=== PATIENT | female | born 1930 | race African-American/Black ===

== ENCOUNTER 2018-03-13 22:25 | Inpatient (IN) | payer OTHER ==
[~2018-03-13] VITALS: Ht 157.5 cm; Wt 64.4 kg
[~2018-03-13 22:25] MED LIST: COLACE100 MG PO; PERCOCET 5/31 TABLET PO
[2018-03-13 23:17] LABS: HEMATOCRIT 32.3 % (36.0-46.0); HEMOGLOBIN 10.7 G/DL (11.9-15.5); MCH 28.4 PG (29.0-34.0); MCHC 33.1 G/DL (30.0-36.0); MCV 85.7 FL (83-99); PLATELET COUNT 118 K/uL (156-360); RBC DIS.WIDTH-CV 14.9 % (11.8-14.6); RBC DIS.WIDTH-SD 46.6 % (39-53); RED BLOOD COUNT 3.77 M/uL (3.80-5.20); WHITE BLOOD COUNT 4.6 K/uL (4.1-10.2)
[2018-03-13 23:43] LABS: ALBUMIN 3.4 G/DL (3.2-4.8); CHLORIDE 104 MEQ/L (99-109); POTASSIUM 4.9 MEQ/L (3.7-5.4); SODIUM 133 MEQ/L (136-147); TOTAL BILIRUBIN 0.8 MG/DL (0.0-1.0)
[2018-03-13 23:49] LABS: ALKALINE PHOSPHATASE 141 IU/L (3-129); ALT (GPT) 35 IU/L (3-49); AST (GOT) 49 IU/L (2-34); CREATININE 1.6 MG/DL (0.6-1.3); GFR ESTIMATE (CALCULATED) 39 mL/min/; GLUCOSE 298 mg/dL (70-99); LIPASE 61 U/L (1.0-51.0); UREA NITROGEN (BUN) 28 mg/dL (9-23)
[2018-03-13 23:57] LABS: APPEARANCE CLOUDY ((CLEAR)); BILIRUBIN NEGATIVE; BLOOD LARGE; COLOR YELLOW ((YELLOW)); GLUCOSE (STRIP) 150; KETONES NEGATIVE; LEUKOCYTES LARGE; NITRITE NEGATIVE; PROTEIN (STRIP) 100; SPECIFIC GRAVITY 1.013 (1.000-1.030)
[2018-03-14] VITALS (8 sets, daily range): BP systolic 107–142; BP diastolic 55–75
[2018-03-14 00:05] LABS: TROP-I INTERPRETATION NEGATIVE; TROPONIN-I 0.03 ng/mL (0.0-0.30)
[2018-03-14] MEDS ORDERED: IRON325 M1 PO (00:09)
[2018-03-14] MEDS ORDERED: GLIPIZIDE5 MG PO (00:09)
[2018-03-14] MEDS ORDERED: VITAMIN D5000 UNI1 PO (00:09)
[2018-03-14] MEDS ORDERED: PRINIVIL20 MG PO (00:09)
[2018-03-14 00:13] LABS: BACTERIA 3+ /HPF; EPITHELIAL CELLS RARE /HPF; MUCUS NONE SEEN /LPF; RED BLOOD CELLS 20-30 /HPF (0-5); UCUL ADDED? YES; WHITE BLOOD CELLS TNTC /HPF (0-5)
[2018-03-15 04:13] VITALS: BP 131/63
[2018-03-15 06:23] LABS: BASOPHIL (%) 0.5 % (0-1); EOSINOPHIL (%) 1.9 % (0-5); EOSINOPHIL COUNT 0.1 K/uL (0-0.3); HEMATOCRIT 31.1 % (36.0-46.0); HEMOGLOBIN 9.8 G/DL (11.9-15.5); IMMATURE GRANULOCYTE (%) 0.2 % (0.0-0.7); LYMPHOCYTE (%) 48.7 % (15-42); LYMPHOCYTE COUNT 2.1 K/uL (1.0-2.8); MCHC 31.5 G/DL (30.0-36.0); MCV 85.7 FL (83-99); MONOCYTE (%) 20.8 % (3-12); MONOCYTE COUNT 0.9 K/uL (0-0.8); NEUTROPHIL (%) 27.9 % (45-76); NEUTROPHIL COUNT 1.2 K/uL (1.8-6.4); PLATELET COUNT 112 K/uL (156-360); RBC DIS.WIDTH-CV 14.9 % (11.8-14.6); RBC DIS.WIDTH-SD 47.3 % (39-53); RED BLOOD COUNT 3.63 M/uL (3.80-5.20); WHITE BLOOD COUNT 4.2 K/uL (4.1-10.2)
[2018-03-15 06:44] LABS: CHLORIDE 110 MEQ/L (99-109); CREATININE 1.6 MG/DL (0.6-1.3); GFR ESTIMATE (CALCULATED) 39 mL/min/; GLUCOSE 126 mg/dL (70-99); POTASSIUM 4.3 MEQ/L (3.7-5.4); SODIUM 139 MEQ/L (136-147); UREA NITROGEN (BUN) 26 mg/dL (9-23)
[2018-03-15 07:50] VITALS: BP 144/64
[2018-03-15 15:51] VITALS: BP 170/78
[2018-03-15 23:34] VITALS: BP 131/70
[2018-03-16 07:00] LABS: BASOPHIL (%) 0.2 % (0-1); EOSINOPHIL (%) 1.4 % (0-5); EOSINOPHIL COUNT 0.1 K/uL (0-0.3); HEMATOCRIT 29.5 % (36.0-46.0); HEMOGLOBIN 9.5 G/DL (11.9-15.5); IMMATURE GRANULOCYTE (%) 0.2 % (0.0-0.7); LYMPHOCYTE (%) 47.6 % (15-42); LYMPHOCYTE COUNT 2.1 K/uL (1.0-2.8); MCHC 32.2 G/DL (30.0-36.0); MONOCYTE COUNT 1.1 K/uL (0-0.8); NEUTROPHIL (%) 26.6 % (45-76); NEUTROPHIL COUNT 1.2 K/uL (1.8-6.4); PLATELET COUNT 120 K/uL (156-360); RBC DIS.WIDTH-CV 14.8 % (11.8-14.6); RBC DIS.WIDTH-SD 47.3 % (39-53); RED BLOOD COUNT 3.39 M/uL (3.80-5.20); WHITE BLOOD COUNT 4.4 K/uL (4.1-10.2)
[2018-03-16 07:23] LABS: CHLORIDE 108 MEQ/L (99-109); CREATININE 1.4 MG/DL (0.6-1.3); GFR ESTIMATE (CALCULATED) 46 mL/min/; GLUCOSE 132 mg/dL (70-99); POTASSIUM 4.5 MEQ/L (3.7-5.4); SODIUM 139 MEQ/L (136-147); UREA NITROGEN (BUN) 22 mg/dL (9-23)
[2018-03-16 08:41] VITALS: BP 138/65
[2018-03-16 15:44] VITALS: BP 146/55
[2018-03-16 17:23] LABS: APPEARANCE CLEAR ((CLEAR)); BILIRUBIN NEGATIVE; BLOOD MODERATE; COLOR YELLOW ((YELLOW)); GLUCOSE (STRIP) >=500; KETONES NEGATIVE; LEUKOCYTES NEGATIVE; NITRITE NEGATIVE; PROTEIN (STRIP) 30; UROBILINOGEN 0.2 MG/DL (0.2-1.0)
[2018-03-16 17:40] LABS: BACTERIA NONE SEEN /HPF; EPITHELIAL CELLS RARE /HPF; MUCUS NONE SEEN /LPF; RED BLOOD CELLS TNTC /HPF (0-5)
[2018-03-16 23:53] VITALS: BP 121/58
[2018-03-17 07:33] VITALS: BP 124/59
[2018-03-17 15:43] VITALS: BP 125/59
[2018-03-18 00:13] VITALS: BP 136/64
[2018-03-18 06:30] LABS: BASOPHIL (%) 0.5 % (0-1); EOSINOPHIL (%) 1.8 % (0-5); EOSINOPHIL COUNT 0.1 K/uL (0-0.3); HEMATOCRIT 30.9 % (36.0-46.0); HEMOGLOBIN 9.7 G/DL (11.9-15.5); IMMATURE GRANULOCYTE (%) 0.2 % (0.0-0.7); LYMPHOCYTE (%) 40.5 % (15-42); LYMPHOCYTE COUNT 1.8 K/uL (1.0-2.8); MCH 27.6 PG (29.0-34.0); MCHC 31.4 G/DL (30.0-36.0); MONOCYTE (%) 21.4 % (3-12); MONOCYTE COUNT 0.9 K/uL (0-0.8); NEUTROPHIL (%) 35.6 % (45-76); NEUTROPHIL COUNT 1.6 K/uL (1.8-6.4); PLATELET COUNT 130 K/uL (156-360); RBC DIS.WIDTH-CV 14.7 % (11.8-14.6); RBC DIS.WIDTH-SD 47.2 % (39-53); RED BLOOD COUNT 3.51 M/uL (3.80-5.20); WHITE BLOOD COUNT 4.4 K/uL (4.1-10.2)
[2018-03-18 07:11] LABS: CHLORIDE 106 MEQ/L (99-109); CREATININE 1.4 MG/DL (0.6-1.3); GFR ESTIMATE (CALCULATED) 46 mL/min/; POTASSIUM 4.5 MEQ/L (3.7-5.4); SODIUM 135 MEQ/L (136-147); UREA NITROGEN (BUN) 27 mg/dL (9-23)
[2018-03-18 07:12] LABS: GLUCOSE 70 mg/dL (70-99)
[2018-03-18 08:29] VITALS: BP 155/67
[2018-03-18 15:54] VITALS: BP 146/66
[2018-03-18 23:17] VITALS: BP 135/63
[2018-03-19 07:43] VITALS: BP 145/67
[2018-03-19] MEDS ORDERED: TYLENOL REGULA325 MG PO (07:44)
[2018-03-19 15:33] VITALS: BP 129/58
[2018-03-19 23:14] VITALS: BP 146/65
[2018-03-20 07:37] VITALS: BP 145/64
== END 2018-03-20 13:49 | disposition home health service (06) | DRG 689 ==
LOC: EME → EDBD 22:25 → EME 22:25 → 3EAST 03-14 00:40 → EDOF 03-14 00:40 → ENRESERV 03-14 00:53 → 3EAST 03-14 01:59
PROVIDERS: Emergency Medicine; Family Medicine Sports Medicine; Obstetrics & Gynecology
DX: N39.0 Urinary tract infection, site not specified (principal); G93.49 Other encephalopathy; I12.9 Hypertensive chronic kidney disease with stage 1 through stage 4 chronic kidney disease, or unspecified chronic kidney disease; N18.2 Chronic kidney disease, stage 2 (mild); E11.22 Type 2 diabetes mellitus with diabetic chronic kidney disease; D50.0 Iron deficiency anemia secondary to blood loss (chronic); D63.8 Anemia in other chronic diseases classified elsewhere; R31.9 Hematuria, unspecified; N95.0 Postmenopausal bleeding; N95.2 Postmenopausal atrophic vaginitis; R93.8 Abnormal findings on diagnostic imaging of other specified body structures; M19.90 Unspecified osteoarthritis, unspecified site; R32 Unspecified urinary incontinence; E78.5 Hyperlipidemia, unspecified; M21.70 Unequal limb length (acquired), unspecified site; Z79.84 Long term (current) use of oral hypoglycemic drugs; Z60.2 Problems related to living alone
CPT/HCPCS: 70450; 71045; 73502; 76856; 80048; 80053; 81003; 82948; 83605; 83690; 83880; 84484; 85025; 85027; 87040; 87076; 87086; 87801; 93005; 99281; 99285; J0696; J1650; J1815; J7030